=== PATIENT | female | born 1930 | race African-American/Black ===

== ENCOUNTER 2016-08-06 17:53 | Emergency (ER) | payer OTHER ==
[~2016-08-06] VITALS: Ht 170.2 cm; Wt 90.7 kg
[~2016-08-06 17:53] MED LIST: ANUSOL HC-HEMOR1 SUP RC; BENTYL20 MG PO; CITALOPRAM HYDR10 MG PO; CRESTOR20 MG PO; DILTIAZEM HYDR PO; DIOVAN HCT 25 M1 TA1 PO; ECOTRIN81 MG PO; GLIPIZIDE2.5 MG PO; JANUVIA 50MG50 MG PO; LANTUS SOLOS100 U/ML SC; LEVEMIR FLEX100 U/M1 SC; LEVOTHYROXIN0.112 M1 PO; METOPROLOL SUCC25 MG PO; OMEPRAZOLE D/R20 MG PO; PANTOPRAZOLE SO40 MG PO; POTASSIUM CHLO20 ME1 PO; VALSARTAN HCTZ PO; ZOFRAN ODT4 MG SL
[2016-08-06 20:56] LABS: ABSOLUTE BASOPHIL COUNT 0.1 /CUMM (0.0-0.2); ABSOLUTE EOSINOPHIL COUNT 0.1 /CUMM (0.0-0.7); ABSOLUTE GRANULOCYTE CT 7.9 /CUMM (1.4-6.5); ABSOLUTE LYMPH COUNT 2.2 /CUMM (1.2-3.4); ABSOLUTE MONOCYTE COUNT 0.5 /CUMM (0.10-0.60); BASOPHIL % 0.5 % (0.0-2.0); EOSINOPHIL % 0.8 % (0-5); GRANULOCYTE % 73.6 % (42.2-75.2); HEMATOCRIT 44.9 % (37-47); MEAN CORPUSCULAR HGB 26.7 PG (27.0-31.0); MEAN CORPUSCULAR HGB CONC 32.2 G/DL (33.0-37.0); MEAN CORPUSCULAR VOLUME 82.8 FL (81.0-99.0); MEAN PLATELET VOLUME 8.8 FL (7.4-10.4); PLATELET COUNT 258 /CUMM (130-400); RBC DISTRIBUTION WIDTH 14.3 % (11.5-14.5); RED BLOOD CELL CT 5.42 /CUMM (4.20-5.40); WHITE BLOOD CELL COUNT 10.7 /CUMM (4.8-10.8)
--- NOTE | 2016-08-06 21:16 | RADIOLOGY REPORT ---
EXAMINATION: XR PORTABLE CHEST CLINICAL INFORMATION: Dizziness. Cough. COMPARISON: Chest x-ray 04/06/2015 TECHNIQUE: Portable view of the chest was obtained. 8:38 PM. FINDINGS: Heart size enlarged. Lungs are clear. No pulmonary vascular congestion. No pleural effusion. IMPRESSION: No acute change of chest.
--- NOTE | 2016-08-06 21:27 | ED GI/GU/ABDOMINAL COMPLAINT ---
History of Present Illness General Chief Complaint: Dizziness Stated Complaint: DIZZINESS,VOMITING Source: patient, family Exam Limitations: no limitations Vital Signs & Intake/Output Vital Signs & Intake/Output Vital Signs Date Time Temp Pulse Resp B/P Pulse O2 O2 Flow FiO2 Ox Delivery Rate 08/07 0125 96.6 76 18 145/98 94 Room Air 08/06 2053 97.6 74 18 166/78 94 Room Air 08/06 1822 98.5 85 20 135/85 95 Room Air ED Intake and Output 08/07 0000 08/06 1200 Intake Total 1000 Output Total Balance 1000 Intake, IV 1000 Patient 200 lb Weight Allergies Coded Allergies: metoclopramide (Severe, "I FELT CRAZY" 08/06/16) nitroglycerin (SYNCOPE 08/06/16) Reconcile Medications Anusol Hc (Anusol Hc-Hemorrhoidal Hc Supp) 1 SUP SUP 1 SUP RC BID ext hemorrhoid Aspirin (Ecotrin) 81 MG ECT 1 TAB PO DAILY HEART HEALTH (Reported) Citalopram Hydrobromide 10 MG TAB 1-2 TAB PO DAILY DEPRESSION (Reported) DILTIAZEM HCL (Diltiazem 24HR Cd) 300 MG CAP.ER.24H 1 TAB PO DAILY HEART RATE (Reported) Glipizide (Glipizide ER) 2.5 MG TAB.ER.24 1 TAB PO DAILY DIABETES (Reported) Hydrochlorothiazide/Valsarta (Diovan Hct 25 MG-320 MG) 1 TAB TAB 1 TAB PO DAILY BP (Reported) Insulin Detemir (Levemir Flextouch) 100 U/ML ZECHARIAH 26 UNITS SC QPM DIABETES ( Reported) Levothyroxine Sodium 0.112 MG TAB 1 TAB PO DAILY HYPOTHYROID (Reported) Meclizine HCl 25 MG TABLET 1 TAB PO TIDPRN PRN dizziness Metoprolol Succinate 25 MG TAB.ER.24H 1 TAB PO DAILY HEART RATE (Reported) Omeprazole 20 MG ECC 1 CAP PO DAILY GI (Reported) Ondansetron (Zofran Odt) 4 MG TAB.RAPDIS 1 TAB SL TID PRN dizziness Pantoprazole Sodium 40 MG TABLET.DR 1 TAB PO DAILY GERD (Reported) Potassium Chloride 20 MEQ TABLET.ER 1 TAB PO DAILY POTASSIUM (Reported) Rosuvastatin Calcium (Crestor) 20 MG TABLET 1 TAB PO DAILY CHOLESTEROL ( Reported) Scopolamine Hydrobromide (Transderm-Scop) 1.5MG/3DAY PATCH.TD.3 1 PAT TOP Q3D PRN VERTIGO apply to the hairless area behind 1 ear at least 4 hours before effect is required; reapply every 3 days as needed Sitagliptin Phosphate (Januvia) 50 MG TABLET 1 TAB PO DAILY DIABETES ( Reported) Triage Note: TRIAGE: PT TO ER WITH DAUGHTER C/C DIZZINESS AND VOMITING ONSET THIS AFTERNOON. DENIES ANY PAIN. DAUGHTER ALSO REPORTS LOOSE STOOLS X FEW DAYS. Triage Nurses Notes Reviewed? yes ? n Is pt currently ? No HPI: 85-year-old female with dizziness and vomiting that started this afternoon. Over the last 2 days she has had mild loose stool. Dizziness is worse when she attempts to move, get up and move her head, is better when she is stationary. It was sudden onset and severe and it caused her to vomit. It is moderate at this time as she is lying in the bed stationary which has helped her symptoms. No history of same. No focal neurologic symptoms of weakness or numbness, no chest pain or palpitations no fever no flulike illness. She has had a normal appetite. She has no abdominal pain. No history of same. No head injury, no aphasia (JACKY CARREON) Past History Travel History Traveled to [place] past 21 day No Medical History Any Pertinent Medical History? 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 No (JACKY CARREON) Review of Systems Review of Systems Constitutional: Reports: see HPI. EENTM: Reports: see HPI. Respiratory: Reports: no symptoms. Cardiovascular: Reports: no symptoms. GI: Reports: no symptoms. Genitourinary: Reports: no symptoms. Musculoskeletal: Reports: no symptoms. Skin: Reports: no symptoms. Neurological/Psychological: Reports: see HPI. Hematologic/Endocrine: Reports: no symptoms. Immunologic/Allergic: Reports: no symptoms. All Other Systems: Reviewed and Negative (JACKY CARREON) Physical Exam Physical Exam Gastrointestinal: normal bowel sounds Comments: Well-developed well-nourished person in no acute distress, looks younger than stated age HEENT: Normal EENT exam, extraocular motion intact, moderate horizontal fatiguing nystagmus. Increased dizziness with head motion Pupils equally round and reactive to light. Nose is atraumatic. External auditory canal and Tympanic membranes clear. Pharynx normal. No swelling or edema. Neck: Supple, no lymphadenopathy, normal range of motion without pain or tenderness Back: Nontender, no CVA tenderness. Cardiovascular: Regular rate and rhythms no murmurs, normal JVP Respiratory: Chest nontender. No respiratory distress. Breath sounds clear to auscultation bilaterally Abdomen: Soft, nontender nondistended, no appreciable organomegaly. Normal bowel sounds. No ascites Extremity: No edema, no calf tenderness to palpation, normal and equal pulses. Neuro: Alert oriented x3, motor sensory normal, cranial nerves II through XII grossly intact. Skin: No appreciable rash on exposed skin, skin is warm and dry. Psych: Mood and affect is normal, memory and judgment is normal. Core Measures ACS in differential dx? Yes Severe Sepsis Present: No Septic Shock Present: No (JACKY CARREON) Progress Differential Diagnosis: AAA, AMI, appendicitis, biliary colic, bowel obstruction , colon cancer, cholecystitis, diverticulitis, ectopic , endometritis, esophageal varices, gastritis, hepatitis, hernia, hemorrhoids, ischemic bowel, inflamm bowel dis, intrauterine , kidney stone, Christine-Melvin tear, ovarian cyst, ovarian torsion, pancreatitis, PID/cervicitis, peptic ulcer, PUD/ GERD, perforated viscous, SBO, threatened AB, UTI/pyelo, VERTIGO, BENIGN POSITIONAL VERTIGO, cva, tia, DEHYDRATION, HYPERGLYCEMIA HYPOGLYCEMIA Plan of Care: Orders Procedure Date/time Status Add-on Test (ER Only) 08/06 2125 Active Saline Lock 08/06 2020 Active URINALYSIS 08/06 2020 Complete TROPONIN LEVEL 08/06 2020 Complete PHOSPHORUS 08/06 2020 Complete SERUM OSMOLALITY 08/06 2020 Complete MAGNESIUM 08/06 2020 Complete COMPREHENSIVE METABOLIC PANEL 08/06 2020 Complete CBC WITHOUT DIFFERENTIAL 08/06 2020 Complete ACETONE 08/06 2020 Complete EKG 08/06 2020 Active Laboratory Tests 01/10/17 2200: Urinalysis LIGHT H, Urine Color YEL, Urine Clarity CLEAR, Urine pH 6.0, Ur Specific [place] 1.020, Urine Protein 30 H, Urine Ketones NEG, Urine Nitrite NEG, Urine Bilirubin NEG, Urine Urobilinogen 0.2, Ur Leukocyte Esterase NEG, Ur Microscopic SEDIMENT EXAMINED, Urine RBC RARE, Urine WBC 1-3 H, Ur Epithelial Cells MOD H, Urine Mucus MOD H, Urine Hemoglobin TRACE-LYSED, Urine Glucose NEG 08/06/162044: CBC w Diff NO MAN DIFF REQ, RBC 5.42 H, MCV 82.8, MCH 26.7 L, RDW 14.3, MPV 8.8, Gran % 73.6, Lymphocytes % 20.4 L, Monocytes % 4.7, Eosinophils % 0.8, Basophils % 0.5, Absolute Granulocytes 7.9 H, Absolute Lymphocytes 2.2, Absolute Monocytes 0.5, Absolute Eosinophils 0.1, Absolute Basophils 0.1, PUBS MCHC 32.2 L 08/06/162020: Anion Gap 12, Estimated GFR 42 L, BUN/Creatinine Ratio 15.0, Glucose 186 H, Serum Osmolality 302 H, Calcium 9.5, Phosphorus 3.9, Magnesium 2.0, Total Bilirubin 0.4, AST 16, ALT 22, Alkaline Phosphatase 87, Troponin I 0.02, Total Protein 6.8, Albumin 3.7, Globulin 3.1, Albumin/Globulin Ratio 1.2, Acetone Level NEGATIVE Initial ED EKG: NSR, rate (80), nonspecific ST T wave chg (BOARDERLINE T WAVE AB. INF) Prior EKG: unchanged (? T WAVE CHANGE INF) Hand-Off Endorsed To: JIMMIE GUILLEN,YOHAN Tejeda Endorsed Time: 2252 Pending: other (re evaluation) Comments: Treated with 1 L of IV fluids, we'll obtain labs, IV Zofran given and 12.5 mg o by mouth Antivert given. Upon reevaluation she is feeling better however she went to get up to go to the bathroom and she had sudden onset severe dizziness again. She went back to bed and symptoms improved. We'll continue to monitor. Patient reevaluated, still with complaints of dizziness with motion and attempts to get up out of bed, will give another 12.5 mg of Antivert and 2 mg of Valium (JACKY CARREON) Comments: 08/07/2016 1:37:17 AM patient is now feeling considerably better and comfortable enough to return home. (JIMMIE GUILLEN,YOHAN Tejeda) Departure Departure Disposition: HOME OR SELF CARE Condition: Stable Referrals: DEANDRA NAVARRO APRN (PCP/Family) Additional Instructions: Follow-up with your doctor if symptoms of dizziness continue. Take Zofran as needed for nausea and Antivert as needed for dizziness. Avoid bending forward or sudden headache motion Departure Forms: Customer Survey General Discharge Information (JACKY CARREON) Departure Clinical Impression Primary Impression: Vertigo Prescriptions: Current Visit Scripts Scopolamine Hydrobromide (Transderm-Scop) 1 PAT TOP Q3D PRN VERTIGO #3 PAT apply to the hairless area behind 1 ear at least 4 hours before effect is required; reapply every 3 days as needed Meclizine HCl 1 TAB PO TIDPRN PRN dizziness #30 TAB Ondansetron (Zofran Odt) 1 TAB SL TID PRN dizziness #15 TAB PA/[employer]ENSED [employer]UST[employer]S BROKER Co-Sign Statement Statement: ED Attending supervision documentation- [x] I saw and evaluated the patient. I have also reviewed all the pertinent lab results and diagnostic results. I agree with the findings and the plan of care as documented in the PA's/LICENSED CUST[employer]S BROKER's documentation. [] I have reviewed the ED Record and agree with the PA's/LICENSED CUST[employer]S BROKER's documentation. [] Additions or exceptions (if any) to the PAs/LICENSED CUST[employer]S BROKER's note and plan are summarized below: [] (JIMMIE GUILLEN,YOHAN Tejeda)
[2016-08-06] MEDS ORDERED: ZOFRAN ODT4 M1 SL ×2 (22:55→23:05)
[2016-08-06] MEDS ORDERED: MECLIZINE HCL25 MG PO ×2 (22:55→23:05)
[2016-08-07 01:25] VITALS: BP 145/98
[2016-08-07] MEDS ORDERED: TRANSDERM-SCOP1 EACH TOP (01:39)
== END 2016-08-07 01:47 ==
LOC: ERH 17:53
PROVIDERS: Physician Assistant Surgical
DX: R42 Dizziness and giddiness (principal); R11.10 Vomiting, unspecified
CPT/HCPCS: 81001; 93005; 93010; 96374; J2405